=== PATIENT | female | born 1965 | race Caucasian/White ===

== ENCOUNTER → 2016-09-25 | Outpatient (CLI) | payer BC ==
--- NOTE | ~2016-09-25 | MR17 ---
[facility] A Service of [facility] RADIOLOGY TEXT RESULTS PATIENT: YUN BURR LOCATION: [facility] : 61 UNIT #: [id number] AGE: [address]: SHOSHANA MELGAR MD SEX: F ORDER DR: [id number] [place] [id number] O MR#: [id number] Acc #: [id number] NAME: YUN BURR : 1965 SEX: F STUDY DATE/TIME: 09/25/2016 16:22 UNIT: [facility] ROOM: STUDY DESCRIPTION: MR Brain WWo Contrast Attending Physician: Shoshana Melgar M.D. Referring Physician: Shoshana Melgar M.D. Ordering Physician: Shoshana Melgar M.D. Primary Care Physician: Shoshana Melgar M.D. MRI CENTER REPORT This report is preliminary unless electronic signature is present. EXAM Brain MRI with and without contrast, date of study is 09/25/2016 PROCEDURE Routine brain MRI with and without contrast COMPARISON None HISTORY Chronic headaches , but since mid July, they have become more severe and more frequent, and longer lasting. FINDINGS There is no MR evidence of restricted diffusion. There is no MR evidence of acute or chronic intracranial hemorrhage. The brain is structurally normal and brain parenchymal signal is mostly normal. There are a few subcortical FLAIR and T2 hyperintensities and there is some slight periventricular FLAIR and T2 hyperintensity, but certainly no more than typically seen in patients of this age. Normal flow voids are seen in the cerebral vessels including the dural venous sinuses. Bone marrow signal is normal. The extracranial soft tissues are normal. Postcontrast images show no evidence of mass or abnormal enhancement. IMPRESSION There are few rare deep white matter T2 hyperintensities in the subcortical and periventricular regions but essentially within normal limits for age of doubtful clinical significance. The exam is otherwise normal. [facility] A Service of [facility] RADIOLOGY TEXT RESULTS PATIENT: YUN BURR LOCATION: [facility] : 61 UNIT #: [id number] AGE: [address]: SHOSHANA MELGAR MD SEX: F ORDER DR: Dictated by... Mauricio Retana M.D. THIS IS AN ELECTRONICALLY VERIFIED REPORT Mauricio Retana M.D. at 09/29/2016 5:01 PM TEV/ea TD: 09/26/2016 14:19 JOB #: [id number] MRI CENTER REPORT Page 1 of 1
== END | disposition home or self-care (01) ==
LOC: SMRI 15:48
DX: G43.909 Migraine, unspecified, not intractable, without status migrainosus (principal); R90.82 White matter disease, unspecified
CPT/HCPCS: 70553; A9581